=== PATIENT | female | born 1945 | race Caucasian/White ===

== ENCOUNTER → 2016-12-22 | Outpatient (CLI) | payer MEDICARE, OTHER | END | disposition home or self-care (01) | LOC: PCVCCLINIC 11:39 | PROVIDERS: ATTEND Internal Medicine Cardiovascular Disease | DX: I42.9 Cardiomyopathy, unspecified (principal); I10 Essential (primary) hypertension; I44.7 Left bundle-branch block, unspecified; E78.00 Pure hypercholesterolemia, unspecified; I48.0 Paroxysmal atrial fibrillation; Z79.899 Other long term (current) drug therapy | CPT/HCPCS: 80061; 93005; G0463 ==

== ENCOUNTER → 2017-08-09 | Outpatient (CLI) | payer MEDICARE, OTHER | END | disposition home or self-care (01) | LOC: PCVCCLINIC 14:26 | DX: I10 Essential (primary) hypertension (principal); I42.9 Cardiomyopathy, unspecified; I48.0 Paroxysmal atrial fibrillation; E78.00 Pure hypercholesterolemia, unspecified; K21.0 Gastro-esophageal reflux disease with esophagitis; R94.31 Abnormal electrocardiogram [ECG] [EKG]; I44.7 Left bundle-branch block, unspecified; Z79.899 Other long term (current) drug therapy | CPT/HCPCS: 80061; 93005; G0463 ==

== ENCOUNTER → 2018-03-21 | Outpatient (CLI) | payer MEDICARE, OTHER ==
--- NOTE | 2018-03-21 11:33 | PCVCIMAG ---
APPROVED REPORT Study performed: 03/21/2018 10:07:53 EXAM: Comprehensive 2D, Doppler, and color-flow Echocardiogram Patient Location: Echo lab Status: routine BSA: 1.69 HR: 51 bpmBP: 140/80 mmHg Rhythm: NSR Other Information Study Quality: Adequate Risk Factors: Cardiac Risk Factors: HTN Indications Atrial Fibrillation Cardiomyopathy Hypertension/HDD 2D Dimensions LVEF(%): 46.29 (>50%) IVSd: 9.48 (7-11mm)LVOT Diam: 18.72 (18-24mm) LVDd: 45.33 mm PWd: 9.22 (7-11mm)Ascending Ao: 30.63 (22-36mm) LVDs: 34.90 (25-40mm) Left Atrium: 37.49 (27-40mm) Aortic Root: 26.13 mm LV Single Plane 4CH: 38.60 % LV Single Plane 2CH: 45.54 %Crews's LVEF: 42.07 % Biplane EF: 43.1 % Volumes Left Atrial Volume (Systole) Single Plane 4CH: 32.43 mLSingle Plane 2CH: 31.31 mL LA ESV Index: 19.00 mL/m2 Aortic Valve AoV Peak Romario.: 1.78 m/s AO Peak Gr.: 12.60 mmHgLVOT Max P.69 mmHg LVOT Max V: 1.29 m/s YULIA Vmax: 2.00 cm2 Mitral Valve E/A Ratio: 0.9 MV Decel. Time: 264.62 ms MV E Max Romario.: 0.82 m/s MV A Romario.: 0.93 m/s IVRT: 121.11 ms Pulmonary Valve PV Peak Gr.: 4.57 mmHg Tricuspid Valve TR Peak Romario.: 2.81 m/s TR Peak Gr.: 31.60 mmHg Left Ventricle The left ventricle is normal size. Mid/apical fixed defect. There is normal left ventricular wall thickness. Left ventricular systolic function is moderately decreased. LVEF is 35%. The left ventricular diastolic function is normal. Right Ventricle The right ventricle is normal size. The right ventricular systolic function is normal. Atria The left atrium size is normal. The right atrium size is normal. Aortic Valve The aortic valve is normal in structure. No aortic regurgitation is present. There is no aortic valvular stenosis. Mitral Valve The mitral valve is normal in structure. Mild mitral regurgitation. No evidence of mitral valve stenosis. Tricuspid Valve The tricuspid valve is normal in structure. Trace to mild tricuspid regurgitation. Pulmonary artery pressure is 39mmhg. Pulmonic Valve The pulmonary valve is normal in structure. There is no pulmonic valvular regurgitation. Great Vessels The aortic root is normal in size. IVC is normal in size and collapses with >50% inspiration Pericardium There is no pericardial effusion. <Conclusion> The left ventricle is normal size. Left ventricular systolic function is moderately decreased. Mid/apical fixed defect. LVEF is 35%. The left ventricular diastolic function is normal. The right ventricle is normal size. The left atrium size is normal. The aortic valve is normal in structure. Mild mitral regurgitation. Trace to mild tricuspid regurgitation. Pulmonary artery pressure is 39mmhg. The aortic root is normal in size. There is no pericardial effusion.
== END | disposition home or self-care (01) ==
LOC: PCVCIMAG 13:11
PROVIDERS: ATTEND Internal Medicine Cardiovascular Disease
DX: I05.1 Rheumatic mitral insufficiency (principal); I48.0 Paroxysmal atrial fibrillation; I10 Essential (primary) hypertension; I42.9 Cardiomyopathy, unspecified; E78.00 Pure hypercholesterolemia, unspecified; I44.7 Left bundle-branch block, unspecified; K21.0 Gastro-esophageal reflux disease with esophagitis; Z79.899 Other long term (current) drug therapy
CPT/HCPCS: 80061; 93005; 93306; G0463

== ENCOUNTER → 2018-10-16 | Outpatient (CLI) | payer MEDICARE, OTHER | END | disposition home or self-care (01) | LOC: PCVCCLINIC 13:33 | PROVIDERS: ATTEND Internal Medicine Cardiovascular Disease | DX: I42.8 Other cardiomyopathies (principal); I10 Essential (primary) hypertension; E78.00 Pure hypercholesterolemia, unspecified; I48.0 Paroxysmal atrial fibrillation; M19.90 Unspecified osteoarthritis, unspecified site; K21.9 Gastro-esophageal reflux disease without esophagitis; Z90.49 Acquired absence of other specified parts of digestive tract; Z79.899 Other long term (current) drug therapy; Z72.89 Other problems related to lifestyle; Z91.040 Latex allergy status | CPT/HCPCS: 36415; 80061; 93005; G0463 ==

== ENCOUNTER → 2019-05-22 | Outpatient (CLI) | payer MEDICARE, OTHER ==
--- NOTE | 2019-05-22 15:29 | PCVCIMAG ---
APPROVED REPORT Study performed: 05/22/2019 12:10:02 EXAM: Comprehensive 2D, Doppler, and color-flow Echocardiogram Patient Location: Echo lab Room #: [id number]: routine BSA: 1.67 HR: 67 bpmBP: 122/68 mmHg Rhythm: NSR, LBBB Other Information Study Quality: Adequate Risk Factors: Cardiac Risk Factors: HTN, Hyperlipidemia Indications Atrial Fibrillation Cardiomyopathy 2D Dimensions IVSd: 10.84 (7-11mm)LVOT Diam: 18.00 (18-24mm) LVDd: 46.54 mm PWd: 10.84 (7-11mm)Ascending Ao: 32.41 (22-36mm) LVDs: 37.66 (25-40mm) Left Atrium: 32.54 (27-40mm) Aortic Root: 27.93 mm LV Single Plane 4CH: 40.64 % LV Single Plane 2CH: 50.48 % Biplane EF: 46.1 % Volumes Left Atrial Volume (Systole) Single Plane 4CH: 36.43 mLSingle Plane 2CH: 66.81 mL LA ESV Index: 34.00 mL/m2 Aortic Valve AoV Peak Romario.: 1.47 m/s AO Peak Gr.: 8.68 mmHgLVOT Max P.98 mmHg LVOT Max V: 1.00 m/s YULIA Vmax: 1.80 cm2 Mitral Valve E/A Ratio: 0.9 MV Decel. Time: 307.43 ms MV E Max Romario.: 0.80 m/s MV A Romario.: 0.88 m/s IVRT: 106.11 ms TDI E/Lateral E': 13.33E/Medial E': 16.00 Medial E' Romario.: 0.05 m/s Lateral E' Romario.: 0.06 m/s Pulmonary Vein P Vein S: 0.49 m/sP Vein A: 0.26 m/s P Vein D: 0.44 m/sP Vein A Dur.: 120.0 msec P Vein S/D Ratio: 1.11 Tricuspid Valve TR Peak Romario.: 2.53 m/sRAP Estimate: 7.00 mmHg TR Peak Gr.: 25.58 mmHg PA Pressure: 33.00 mmHg Left Ventricle The left ventricle is normal size. Mid-septal hypokinesis, fixed defect. Borderline concentric left ventricular hypertrophy. Left ventricular systolic function is moderately decreased. LVEF is 40-45%. The left ventricular diastolic function is normal. Right Ventricle The right ventricle is normal size. The right ventricular systolic function is normal. Atria The left atrium size is normal. The right atrium size is normal. Aortic Valve The aortic valve is normal in structure. No aortic regurgitation is present. There is no aortic valvular stenosis. Mitral Valve The mitral valve is normal in structure. Mild mitral regurgitation. No evidence of mitral valve stenosis. Tricuspid Valve The tricuspid valve is normal in structure. Mild tricuspid regurgitation. Pulmonary artery pressure is 33 mmHg. Pulmonic Valve The pulmonary valve is normal in structure. There is no pulmonic valvular regurgitation. Great Vessels The aortic root is normal in size. IVC is normal in size and collapses >50% with inspiration. Pericardium There is no pericardial effusion. <Conclusion> The left ventricle is normal size. Mid-septal hypokinesis, fixed defect. Borderline concentric left ventricular hypertrophy. Left ventricular systolic function is moderately decreased. LVEF is 40-45%. The right ventricle is normal size. The left atrium size is normal. The aortic valve is normal in structure. Mild mitral regurgitation. Mild tricuspid regurgitation. Pulmonary artery pressure is 33 mmHg. The aortic root is normal in size. There is no pericardial effusion.
== END | disposition home or self-care (01) ==
LOC: PCVCIMAG 11:02
PROVIDERS: ATTEND Internal Medicine Cardiovascular Disease
DX: I08.3 Combined rheumatic disorders of mitral, aortic and tricuspid valves (principal); I48.0 Paroxysmal atrial fibrillation; I42.9 Cardiomyopathy, unspecified; I11.9 Hypertensive heart disease without heart failure; I44.7 Left bundle-branch block, unspecified; Z79.899 Other long term (current) drug therapy; Z88.8 Allergy status to other drugs, medicaments and biological substances
CPT/HCPCS: 93306